=== PATIENT | female | born 1960 ===

== ENCOUNTER 2024-10-25 06:12 | Day surgery (SDC) | payer OTHER ==
[2024-10-19 14:11] VITALS: BP 146/87
[~2024-10-25] VITALS: Ht 167.6 cm; Wt 75.3 kg
[~2024-10-25 06:12] MED LIST: VASOTEC5 MG PO
[2024-10-25] MEDS ORDERED: CEFAZOLIN SODIUM 1,000 MG VIAL IV ONE (09:15)
[2024-10-25] MEDS ORDERED: GENTAMICIN SULFATE 40 MG/ML VIAL IV ONE (09:15)
[2024-10-25] MEDS ORDERED: CHLORHEXIDINE GLUCONATE 120 ML BOTTLE TOP ONE (09:15)
[2024-10-25] MEDS ORDERED: MACROBID 100 M100 MG PO (09:31)
[2024-10-25] MEDS ORDERED: TRAM1TAB98 PO (09:32)
[2024-10-25 13:15] VITALS: BP 118/73; O2SAT 100
== END 2024-10-25 12:10 | disposition home or self-care (01) ==
LOC: CIR.AMB 06:12
PROVIDERS: ATTEND Obstetrics & Gynecology Gynecology
DX: N81.11 Cystocele, midline (principal)